=== PATIENT | female | born 1985 | race Caucasian/White ===

== ENCOUNTER → 2021-06-11 11:19 | Outpatient (CLI) | payer OTHER, SELFPAY ==
[2021-06-11 11:47] LABS: Add Manual Diff / Slide Review NO; Basophils Absolute Auto 100 /uL (0-100); Basophils Percent Auto 0.8 % (0-2); Eosinophils Absolute Auto 100 /uL (0-450); Eosinophils Percent Auto 1.7 % (2-4); Hematocrit 38.7 % (36-46); Hemoglobin 12.5 g/dL (12.0-16.0); Lymphocytes Absolute Auto 3700 /uL (1100-4500); Mean Corpuscular HGB Conc 32.4 % (30-36); Mean Corpuscular Hemoglobin 29.9 PG (26-34); Mean Corpuscular Volume 92.4 fL (80-100); Monocytes Absolute Auto 800 /uL (0-900); Monocytes Percent Auto 10.1 % (3-14); Neutrophils Absolute Auto 3000 /uL (1500-7000); Neutrophils Percent Auto 39.4 % (50-75); Platelet Count 264 X10^3/uL (150-400); Red Blood Cell Count 4.19 X10^6/uL (4.0-5.2); Red Cell Distribution Width 13.6 % (11.6-14.8); White Blood Cell Count 7.7 X10^3/uL (4.5-11.0)
[2021-06-11 12:01] LABS: Alanine Aminotransferase 13 IU/L (<35); Albumin 4.5 g/dL (3.5-5.0); Albumin Globulin Ratio 1.5 (1.0-2.8); Alkaline Phosphatase 45 U/L (38-126); Aspartate Aminotransferase 18 IU/L (14-36); BUN Creatinine Ratio 24.5 (6-22); Bilirubin Total 0.4 mg/dL (0.2-1.3); Blood Urea Nitrogen 13 mg/dL (7-17); Calcium 9.3 mg/dL (8.4-10.2); Carbon Dioxide 29 mmol/L (22-32); Chloride 106 mmol/L (98-107); Estimated Glomerular Filt Rate > 60.0 mL/min (>60); Glucose 69 mg/dL (70-100); HEMOLYSIS < 15 (0-50); Potassium 3.3 mmol/L (3.4-5.1); Sodium 141 mmol/L (137-145); Total Protein 7.5 g/dL (6.3-8.2)
[2021-06-11 12:46] LABS: HEMOLYSIS < 15 (0-50); Iron 92 ug/dL (37-170)
[2021-06-11 12:56] LABS: Percent Iron Saturation 30 % (15-50); Total Iron Binding Capacity 311 ug/dL (265-497); Transferrin 268 mg/dL (206-381)
[2021-06-11 13:21] LABS: Cancer Antigen 125 < 5.5 U/mL (0-35)
[2021-06-11 14:17] LABS: Ferritin 34 ng/mL (6-137)
[2021-06-11 15:15] LABS: Follicle Stimulating Hormone 68.4 mIU/mL
[2021-06-16 14:19] LABS: Anti Mullerian Hormone 0.025 ng/mL (.); Inhibin B 20.4 pg/mL (.)
== END ==
PROVIDERS: Internal Medicine Hematology & Oncology; Obstetrics & Gynecology; PCP Family Medicine; Referring Provider Family Medicine; Visit Provider Family Medicine
DX: N92.6 Irregular menstruation, unspecified (principal); Z85.43 Personal history of malignant neoplasm of ovary; N97.0 Female infertility associated with anovulation; C56.2 Malignant neoplasm of left ovary
CPT/HCPCS: 36415; 80053; 82397; 82728; 83001; 83520; 83540; 83550; 85025; 86304

== ENCOUNTER → 2021-07-15 12:45 | Outpatient (CLI) | payer OTHER, SELFPAY ==
--- NOTE | 2021-07-15 12:46 | DI.RAD.S_ITS ---
PROCEDURE: HL HYSTEROSAPINGOGRAPHY INDICATIONS: Infertility COMPARISON: None. FINDINGS: A balloon-tip catheter was inserted into uterine cavity through the cervical canal, and secured by inflating the balloon by furnace setter. Contrast was then injected into the endometrial canal. The patient was examined under fluoroscopy. Uterus: The uterine cavity appears small but normal morphology, without synechiae or masses. Fallopian tubes: The left fallopian tube is truncated without spillage of contrast, probably ligated. The right fallopian tube fills with contrast and demonstrates normal caliber. There is clumping of the infundibula, fallopian tube is otherwise normal in morphology. There is ready dispersion of contrast into the peritoneal cavity from the right fallopian tube. IMPRESSION: 1. The left fallopian tube is truncated, likely secondary to ligation or partial surgical resection. Recommend correlation with clinical history. 2. Mild clubbing of in the infundibulum of the right fallopian tube. The right fallopian tube is, nevertheless, patent with normal spillage of injected contrast into the peritoneal cavity. 3. The uterine cavity appears small but normal in morphology. Please correlate with measurement on gynecological ultrasound. Dictated by: Katherin Garcia M.D. on 07/16/2021 at 14:17 Approved by: Katherin Garcia M.D. on 07/16/2021 at 14:28
--- NOTE | 2021-07-17 13:17 | PM.PROC.1 ---
Procedures Date/Time Date of procedure: 07/15/21 Time of procedure: 13:20 General Procedure description: Hysterosalpingogram: Following written consent, the placed was placed in dorsal lithotomy position on the imaging table and a sterile speculum was inserted in the vagina. The cervix was easily visualized and painted with iodine solution. Using aseptic technique, a thin HSG catheter was then introduced into the endocervical canal and approximately 1 cc of air was instilled in the balloon. The presence of the catheter in the correct position was confirmed by fluoroscopy and injection of contrast media was slowly initiated. Fill of the uterine cavity was prompt and the left fallopian tube was noted to be absent due to it's previous surgical removal. The fallopian tube on the right did will promptly but free spill into the abdominal cavity could not be assured. Instead it appeared as though either there was a distal hydrosalpinx or loculation of the contrast material around the distal tube/ovary. Delayed and oblique films were taken by the radiologist in attendance. The HSG catheter was then removed from the endocervical canal after deflation of the balloon and removed. Patient tolerated procedure well and we placed on 5 days of oral Vibramycin 100 mg. b.i.d.. Postprocedure precautions reviewed with the patient in follow-up be on as needed basis. Complications: none
== END ==
PROVIDERS: PCP Family Medicine; Referring Provider Obstetrics & Gynecology; Visit Provider Obstetrics & Gynecology
DX: N97.0 Female infertility associated with anovulation (principal)
CPT/HCPCS: 58340; 74740

== ENCOUNTER → 2021-08-21 14:20 | Outpatient (CLI) | payer OTHER, SELFPAY ==
[2021-08-21 16:52] LABS: Follicle Stimulating Hormone 72.9 mIU/mL
[2021-08-27 02:19] LABS: Anti Mullerian Hormone 0.039 ng/mL (.)
== END ==
PROVIDERS: PCP Family Medicine; Referring Provider Obstetrics & Gynecology; Visit Provider Obstetrics & Gynecology
DX: N97.0 Female infertility associated with anovulation (principal)
CPT/HCPCS: 36415; 82397; 83001

== ENCOUNTER → 2021-09-04 14:14 | Outpatient (CLI) | payer OTHER, SELFPAY ==
--- NOTE | 2021-09-04 14:16 | DI.US.S_ITS ---
PROCEDURE: US PELVIC COMPLETE INDICATIONS: RIGHT OVARIAN CYST TECHNIQUE: Real-time scanning was performed of the pelvic organs, with image documentation. Additional endovaginal scanning was necessary due to incomplete visualization of the adnexal and endometrial structures by transabdominal scanning. COMPARISON: None. FINDINGS: Uterus: Uterus is anteverted and normal in size at 7.4 x 3.4 x 4.6 cm. The myometrium is homogeneous. The endometrium measures 5.3 mm combined thickness. Ovaries: The right ovary measures 7.7 x 4.6 x 4.3 cm. Multiple hypoechoic lesions are seen within the right ovary, measuring up to 4.3 cm, most consistent with cysts. Tubular structure in the right adnexa, most consistent with hydrosalpinx. The left ovary is reportedly surgically absent Other: No pathologic free abdominal or pelvic fluid. IMPRESSION: Right hydrosalpinx with multiple right ovarian cysts. Consider sonographic follow-up in 6-12 weeks as clinically warranted. We strive to produce accurate, complete, and clear reports of imaging services. To assist us in improving patient care, this report was composed using standard report templates and voice recognition software. Therefore, it may contain abnormal punctuation, insertions and/or omissions. Occasional wrong-word or sound-alike substitutions may occur. Though we review the report and make efforts to correct it, we do recommend that the report be read carefully in proper context to recognize any text inaccuracies. Dictated by: Didier Amin M.D. on 09/04/2021 at 15:00 Approved by: Didier Amin M.D. on 09/04/2021 at 15:04
== END ==
PROVIDERS: PCP Family Medicine; Referring Provider Obstetrics & Gynecology; Visit Provider Obstetrics & Gynecology
DX: C56.1 Malignant neoplasm of right ovary (principal); N70.11 Chronic salpingitis; N83.201 Unspecified ovarian cyst, right side
CPT/HCPCS: 76830; 76856

== ENCOUNTER → 2021-10-30 15:44 | Outpatient (CLI) | payer OTHER, SELFPAY ==
--- NOTE | 2021-10-30 15:46 | DI.MRI.S_ITS ---
PROCEDURE: MR PELVIS WO/W CON INDICATIONS: F/U OVAIAN MASS AND UTERUS TECHNIQUE: Coronal HASTE, sagittal breath-hold T2 FSE; axial T1 FSE with and without fat saturation through the pelvis. Optional long- and short-axis uterine nonbreath-hold T2 FSE through the uterus. Sagittal or axial dynamic VIBE during administration of contrast. Post-contrast axial or coronal VIBE/2-D FLASH with fat saturation from the iliac crests to the symphysis. Optional diffusion weighted imaging and ADC may be performed. COMPARISON: [facility], RF, HYSTEROSAPINGOGRAPHY, 07/15/2021, 13:29. [facility], US, US PELVIC COMPLETE, 09/04/2021, 14:21. FINDINGS: Image quality: Excellent. Uterus: Uterus is normal in size. Endometrium is normal in thickness. Junctional zone is normal in thickness at 12 mm or less. There is a small subserosal cystic focus along the right fundus. A very small subendometrial cyst is seen along the posterior aspect in the lower uterine segment. Adnexa: The left ovary is surgically absent. Within the right adnexa, there is a complex cystic mass, a portion of which demonstrates homogeneous T1 hyperintensity , intermediate T2 signal, and T2 shading. This area measures 1.7 x 2.2 by 2.8 cm. A portion of the capsule is thick and T2 hypointense. It demonstrates restricted diffusion homogeneously. No suspicious enhancement postcontrast. This is partially surrounded by a dominant ovarian cyst measuring about 2.8 cm. The fallopian tube is no longer fluid-filled or distended. There is trace fluid in posterior right adnexa. Urinary system: There is T2 hypointense tethering of the posterior wall of the urinary bladder to the anterior wall of the vaginal canal/lower uterine segment. Bladder wall is otherwise normal in thickness. Distal ureters are non distended. Urethra appears normal in morphology. Nodes and vessels: No pelvic or inguinal adenopathy by size criteria. Iliac vessels are normal in size. Bowel and peritoneum: No pathologic free pelvic fluid. There is sigmoid diverticulosis. Inferior colon and small bowel loops are normal in caliber. Soft tissues: No inguinal hernias. No findings of pelvic floor incompetence in the absence of provocation. Bones: Marrow demonstrates normal overall signal. IMPRESSION: 1. Findings are suggestive of a 2.8 cm right ovarian endometrioma, less likely physiologic hemorrhagic cyst. 2. Resolution of right hydrosalpinx seen on previous ultrasound. 3. Other subtle findings of endometriosis in the pelvis such as urinary bladder wall tethering, subserosal uterine fundal cystic focus, and tiny sub endometrial cyst. 4. Sigmoid diverticulosis. Dictated by: Krysta Rivera M.D. on 10/31/2021 at 7:49 Approved by: Krysta Rivera M.D. on 10/31/2021 at 9:38
== END ==
PROVIDERS: PCP Family Medicine; Referring Provider Family Medicine; Visit Provider Family Medicine
DX: N83.9 Noninflammatory disorder of ovary, fallopian tube and broad ligament, unspecified (principal); N80.3 Endometriosis of pelvic peritoneum; K57.30 Diverticulosis of large intestine without perforation or abscess without bleeding
CPT/HCPCS: 72197; A9579

== ENCOUNTER → 2021-11-09 15:51 | Outpatient (CLI) | payer OTHER, SELFPAY ==
[2021-11-09 17:33] LABS: COVID-19 CEPHEID PCR (VTM/NP) Negative (Negative)
== END ==
PROVIDERS: PCP Family Medicine; Visit Provider Family Medicine Sleep Medicine
DX: Z20.822 Contact with and (suspected) exposure to COVID-19 (principal)
CPT/HCPCS: C9803; U0003; U0005

== ENCOUNTER → 2022-05-06 12:44 | Outpatient (CLI) | payer OTHER, SELFPAY ==
--- NOTE | 2022-05-06 12:45 | DI.US.S_ITS ---
PROCEDURE: US PELVIC COMPLETE INDICATIONS: Right ovarian mass TECHNIQUE: Real-time scanning was performed of the pelvic organs, with image documentation. Additional endovaginal scanning was necessary due to incomplete visualization of the adnexal and endometrial structures by transabdominal scanning. COMPARISON: [facility], US, US PELVIC COMPLETE, 09/04/2021, 14:21. FINDINGS: Uterus: Uterus is anteverted and normal in size at 8.4 x 3.9 x 4.3 cm. The myometrium is heterogeneous. The endometrium measures 3.3 mm combined thickness. No fibroids noted. Ovaries: The right ovary measures 2.7 x 2.2 x 2.2 cm. There is a single right ovarian cyst measuring 1.6 x 1.3 x 2.2 cm. The left ovary is surgically absent. Other: No pathologic free abdominal or pelvic fluid. IMPRESSION: Remote left oophorectomy. Otherwise unremarkable pelvic ultrasound. We strive to produce accurate, complete, and clear reports of imaging services. To assist us in improving patient care, this report was composed using standard report templates and voice recognition software. Therefore, it may contain abnormal punctuation, insertions and/or omissions. Occasional wrong-word or sound-alike substitutions may occur. Though we review the report and make efforts to correct it, we do recommend that the report be read carefully in proper context to recognize any text inaccuracies. Dictated by: Trevon Garcia M.D. on 05/06/2022 at 16:20 Approved by: Trevon Garcia M.D. on 05/06/2022 at 16:23
== END ==
PROVIDERS: PCP Family Medicine; Referring Provider Obstetrics & Gynecology; Visit Provider Obstetrics & Gynecology
DX: C56.1 Malignant neoplasm of right ovary (principal); Z90.721 Acquired absence of ovaries, unilateral
CPT/HCPCS: 76830; 76856